=== PATIENT | female | born 1960 | race Caucasian/White ===

== ENCOUNTER 2017-09-22 16:54 | Observation (INO) ==
--- NOTE | 2017-09-22 17:09 | Emergency Department Note ---
Disposition Clinical Impression: Vasovagal syncope, Dehydration Disposition: Admitted As Inpatient Time of Disposition: 20:00 (jacinda proctor) Syncope HPI - General Chief Complaint: ED Syncope Stated Complaint: sycopal episode Time Seen by Provider: 09/22/17 17:05 Source: patient Mode of arrival: ambulatory Limitations: no limitations Nursing Notes Reviewed: Yes Vital Signs Reviewed: Yes - History of Present Illness HPI Narrative: Elderly female whose been having syncopal episodes since yesterday recently restarted back on her blood pressure medication has been having more episodes since this hit her shoulder hit her head patient states that she still feels lightheaded and dizzy like she can pass out when she gets up as result. 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: headache, lightheaded Context: during exertion Injuries Sustained Associated with Event: head, RUE Current Symptoms: lightheaded, weakness History: previous syncopal episode Treatments prior to arrival: none Associated trauma secondary to event: No - Related Data Home Medications Medication Instructions Recorded Confirmed Allopurinol [Zyloprim 300 MG] 300 mg PO DAILY 02/15/16 09/22/17 BuPROPion [Wellbutrin] 150 mg PO BID 02/15/16 09/22/17 Cholecalciferol (Vitamin D3) 400 unit PO DAILY 02/15/16 09/22/17 [Vitamin D3] Furosemide [Lasix] 80 mg PO DAILY 02/15/16 09/22/17 Gabapentin [Neurontin] 300 mg PO TID 02/15/16 09/22/17 Metoprolol [Lopressor] 25 mg PO DAILY 02/15/16 09/22/17 OxyCODONE ER (12 HR) [OxyCONTIN] 40 mg PO Q12HR 02/15/16 09/22/17 OxyCODONE/APAP 5/325 [Percocet 1 each PO Q6HR PRN 02/15/16 09/22/17 5/325 MG] Psyllium Husk [Daily Fiber] 0.52 gm PO DAILY 02/15/16 09/22/17 Rosuvastatin [Crestor] 20 mg PO HS 02/15/16 09/22/17 Linagliptin [Tradjenta] 5 mg PO DAILY 02/16/16 09/22/17 Naloxegol Oxalate [Movantik] 12.5 mg PO DAILY 10/19/16 09/22/17 Lisinopril [Zestril] 5 mg PO DAILY 09/22/17 09/22/17 Allergies Allergy/AdvReac Type Severity Reaction Status Date / Time Penicillins Allergy Difficulty Verified 09/22/17 16:56 Breathing All systems ED: reviewed and negative except as stated. Review of Systems: As Per HPI Constitutional: Denies: fever, chills, weakness Eyes: Denies: eye pain ENT ED: Denies: ear pain Cardiovascular: Reports: syncope. Denies: chest pain Respiratory: Denies: cough, dyspnea Gastrointestinal: Denies: abdominal pain Genitourinary: Denies: urgency, dysuria, frequency Musculoskeletal: Denies: back pain, neck pain Integumentary: Denies: rash, abrasion, lesions Neurological: Reports: weakness, vertigo. Denies: headache, confusion Psychiatric: Denies: anxiety, depression Endocrine: Reports: fatigue Hematological/Lymphatic: Denies: easy bleeding Allergic/Immunologic: Denies: facial swelling Past Medical History - Past Medical History Attestation: Yes The following information was validated with the patient. 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 history - Social History Smoking Status: Current every day smoker Smokeless Tobacco Status: No Alcohol use: Reports: none Drug use: Reports: none Physical Exam - General Limitations: no limitations General appearance: alert, in no apparent distress, obese - Head Head exam: atraumatic, normocephalic, normal inspection - Eye Eye exam: Present: normal appearance, PERRL, EOMI - ENT ENT exam: normal exam, normal oropharynx, mucous membranes moist, normal external ear exam - Neck Neck exam: Present: normal inspection, full ROM, trachea midline - Chest Chest inspection: Present: normal inspection, symmetric chest wall rise - Respiratory Respiratory exam: Present: normal lung sounds bilaterally - Cardiovascular Cardiovascular exam: Present: regular rate, normal rhythm, normal heart sounds - Abdominal Exam Abdominal exam: Present: soft, Non-Tender, normal bowel sounds - Extremities Exam Extremities exam: Present: normal inspection, full ROM, normal capillary refill. Absent: tenderness, pedal edema, joint swelling, calf tenderness - Expanded Lower Extremity Exam Neurovascular/Tendon exam: Present: normal capillary refill, normal fine/light touch Gait: observed and normal - Back Exam Back exam: Present: normal inspection, full ROM. Absent: muscle spasm - Neurological Exam Neurological exam: Present: alert, oriented X3, CN II-XII intact, normal gait - Psychiatric Psychiatric exam: Present: normal affect, normal mood - Skin Skin exam: Present: warm, dry, intact, normal color Course Course Narrative: Patient was seen and examined the patient received a total of 2 L fluid bolus blood pressure still holding at 80/46 heart rate still holding in the 60s patient and reviewing of her labs says that she has some renal impairment which may be the precipitating factor for this which appears to have occurred previously when I spoke to the patient about a which is why they have stopped her blood pressure medicines previously as result she is grade for observation transfer to [facility] services of Dr. Be Vital Signs Temperature 98.8 F 09/22/17 16:57 Pulse Rate 60 09/22/17 16:57 Respiratory Rate 18 09/22/17 16:57 Blood Pressure 78/46 09/22/17 16:57 O2 Sat by Pulse Oximetry 98 09/22/17 16:57 Temperature 98.1 F 09/23/17 06:49 Pulse Rate 76 09/23/17 06:49 Respiratory Rate 16 09/23/17 06:49 Blood Pressure 121/65 09/23/17 06:49 O2 Sat by Pulse Oximetry 93 09/23/17 06:49 Oxygen Delivery Oxygen Delivery Room Air Syncope - MDM Narrative Medical decision making narrative: Dehydration medication-induced metabolic - Differential Diagnosis Likely: syncope due to orthostatic hypotension - Medical Records Medical records reviewed: Yes I reviewed the patient's medical records. - Lab Data Lab results reviewed: Yes I reviewed the patient's lab results. Result diagrams: 09/23/17 04:52 09/23/17 04:52 Lab Results 09/22/17 09/22/17 09/22/17 Range/Units 17:18 17:18 17:18 WBC 13.2 H (4.3-11.1) K/mcL RBC 3.61 L (3.82-4.97) M/mcL Hgb 11.8 (11.5-15.4) g/dL Hct 36.4 (35.3-44.9) % MCV 100.8 H (83.0-100.0) fL MCH 32.7 (28.0-33.3) pg MCHC 32.4 (31.6-35.5) g/dL RDW 14.4 (11.5-14.5) % Plt Count 129 L (140-400) K/mcL MPV 9.9 (9.4-12.4) fL Immature Gran % 0.9 (0-4) % Seg Neutrophils % 77.5 % Lymphocytes % 11.6 % Monocytes % 7.6 % Eosinophils % 1.9 % Basophils % 0.5 % Neutrophils # 10.2 H (1.6-8.9) K/mcL Lymphocytes # 1.5 (0.6-4.6) K/mcL Monocytes # 1.0 (0.0-1.3) K/mcL Eosinophils # 0.3 (0.0-0.6) K/mcL Basophils # 0.1 (0.0-0.2) K/mcL PT 12.3 H (9.4-12.1) Seconds INR 1.1 APTT 25.6 L (26.0-36.0) Seconds Sodium 141 (136-145) mEq/L Potassium 4.9 H (3.5-4.5) mEq/L Chloride 104 (98-109) mEq/L Carbon Dioxide 26 (19-29) mEq/L BUN 44 H (7-20) mg/dL Creatinine 2.19 H (0.57-1.11) mg/dL Est GFR ( Amer) 28 L (> 60) Est GFR (Non-Af Amer) 23 L (> 60) BUN/Creatinine Ratio 20 (6-26) Glucose 161 H (70-99) mg/dL Calculated Osmolality 307 H (280-300) Calcium 8.7 (8.6-10.8) mg/dL Troponin I (0-0.03) ng/mL B-Natriuretic Peptide (0-100) pg/mL 09/22/17 09/22/17 Range/Units 17:18 17:18 WBC (4.3-11.1) K/mcL RBC (3.82-4.97) M/mcL Hgb (11.5-15.4) g/dL Hct (35.3-44.9) % MCV (83.0-100.0) fL MCH (28.0-33.3) pg MCHC (31.6-35.5) g/dL RDW (11.5-14.5) % Plt Count (140-400) K/mcL MPV (9.4-12.4) fL Immature Gran % (0-4) % Seg Neutrophils % % Lymphocytes % % Monocytes % % Eosinophils % % Basophils % % Neutrophils # (1.6-8.9) K/mcL Lymphocytes # (0.6-4.6) K/mcL Monocytes # (0.0-1.3) K/mcL Eosinophils # (0.0-0.6) K/mcL Basophils # (0.0-0.2) K/mcL PT (9.4-12.1) Seconds INR APTT (26.0-36.0) Seconds Sodium (136-145) mEq/L Potassium (3.5-4.5) mEq/L Chloride (98-109) mEq/L Carbon Dioxide (19-29) mEq/L BUN (7-20) mg/dL Creatinine (0.57-1.11) mg/dL Est GFR ( Amer) (> 60) Est GFR (Non-Af Amer) (> 60) BUN/Creatinine Ratio (6-26) Glucose (70-99) mg/dL Calculated Osmolality (280-300) Calcium (8.6-10.8) mg/dL Troponin I 0.01 (0-0.03) ng/mL B-Natriuretic Peptide 64 (0-100) pg/mL - Radiology Data Radiology results reviewed: Yes I reviewed the patient's radiology results. ITS Impressions Chest X-Ray 09/22/17 17:06 IMPRESSION: 1. No active pulmonary disease. D/ / Charlie Cunningham MD / Charlie Cunningham MD Interpreting Provider: Charlie Cunningham MD Head CT 09/22/17 17:06 IMPRESSION: No acute intracranial abnormality. D/ / Wei Baker MD / Wei Baker MD Interpreting Provider: Wei Baker MD - EKG Data EKG attestation: Yes I reviewed and interpreted this EKG. EKG results narrative: Sinus rhythm rate 60 OH 151 QRS 125 DT 432 axis -48 nonspecific changes Critical Care Time Critical Care Time: Yes Total Critical Care Time: 35 Attestation: Critical care performed: 35 minutes as the result of the patient having recurrent hypotension which was determined to be related possibly due to recent restarting of her medications which would account for Bradycardia Also Noted with the Patient That She Was Just Started Back on Blood Pressure Medication She Also Showing Signs of Renal Impairment Which May Be Acute When Compared to Previous Labs Scheduled Dr. Be Who Agrees Time is exclusive of separately billable procedures. Time includes: direct patient care, patient reassessment, coordination of patient care, interpretation of data (laboratory data, radiology data, and respiratory data), review of patient's medical records, medical consultation and documentation of patient care. Procedures included in critical care time: Procedures excluded from critical care time:
[2017-09-22] MEDS ORDERED: 0.9 % Sodium Chloride 1,000 ML IVC ONE (17:20)
[2017-09-22 17:30] LABS: Basophils # 0.1 K/mcL (0.0-0.2); Basophils % 0.5 %; Eosinophils # 0.3 K/mcL (0.0-0.6); Eosinophils % 1.9 %; Hematocrit 36.4 % (35.3-44.9); Hemoglobin 11.8 g/dL (11.5-15.4); Immature Granulocytes % 0.9 % (0-4); Lymphocytes # 1.5 K/mcL (0.6-4.6); Lymphocytes % 11.6 %; Mean Corpuscular HGB Conc 32.4 g/dL (31.6-35.5); Mean Corpuscular Hemoglobin 32.7 pg (28.0-33.3); Mean Corpuscular Volume 100.8 fL (83.0-100.0); Mean Platelet Volume 9.9 fL (9.4-12.4); Monocytes % 7.6 %; Platelet Count 129 K/mcL (140-400); Red Blood Count 3.61 M/mcL (3.82-4.97); Red Cell Distribution Width 14.4 % (11.5-14.5); Segmented Neutrophils % 77.5 %
[2017-09-22 17:40] LABS: Neutrophils # 10.2 K/mcL (1.6-8.9)
[2017-09-22 17:46] LABS: Calcium 8.7 mg/dL (8.6-10.8); Potassium 4.9 mEq/L (3.5-4.5)
[2017-09-22 17:55] LABS: INR 1.1; Prothrombin Time 12.3 Seconds (9.4-12.1)
[2017-09-22 17:58] LABS: Activated Partial Thrombo Time 25.6 Seconds (26.0-36.0)
[2017-09-22] MEDS ORDERED: D5% in Water 1,000 ML IVC PRN (21:12)
[2017-09-22] MEDS ORDERED: *HR* OxyCODONE/APAP 5/325 TABLET PO PRN (21:12)
[2017-09-22] MEDS ORDERED: Dextrose Gel 15 GM PO PRN ×2 (21:12)
[2017-09-22] MEDS ORDERED: Naloxone 0.4 MG/ML INJ IVP PRN (21:12)
[2017-09-22] MEDS ORDERED: *HR* Dextrose 50 % in Water (Syg) 50 ML SYRINGE IVP PRN (21:12)
[2017-09-22] MEDS ORDERED: 0.9 % Sodium Chloride 1,000 ML IVC SCH (21:12)
[2017-09-22] MEDS ORDERED: Ondansetron 4 MG/2 ML VIAL IVP PRN (21:12)
[2017-09-22] MEDS: Gabapentin 300 MG CAPSULE PO SCH (23:19)
[2017-09-22] MEDS: *HR* OxyCODONE ER (12 HR) 40 MG TABLET PO SCH (23:23)
[2017-09-23 05:23] LABS: Basophils # 0.1 K/mcL (0.0-0.2); Basophils % 0.6 %; Eosinophils # 0.3 K/mcL (0.0-0.6); Eosinophils % 3.1 %; Hematocrit 34.2 % (35.3-44.9); Hemoglobin 10.9 g/dL (11.5-15.4); Immature Granulocytes % 0.8 % (0-4); Lymphocytes # 1.9 K/mcL (0.6-4.6); Mean Corpuscular HGB Conc 31.9 g/dL (31.6-35.5); Mean Corpuscular Hemoglobin 32.7 pg (28.0-33.3); Mean Corpuscular Volume 102.7 fL (83.0-100.0); Mean Platelet Volume 9.9 fL (9.4-12.4); Monocytes # 0.6 K/mcL (0.0-1.3); Monocytes % 5.4 %; Neutrophils # 7.5 K/mcL (1.6-8.9); Platelet Count 115 K/mcL (140-400); Red Blood Count 3.33 M/mcL (3.82-4.97); Red Cell Distribution Width 14.5 % (11.5-14.5); Segmented Neutrophils % 72.1 %
[2017-09-23 05:28] LABS: Prothrombin Time 11.1 Seconds (9.4-12.1)
[2017-09-23 05:31] LABS: Activated Partial Thrombo Time 25.9 Seconds (26.0-36.0)
[2017-09-23 05:43] LABS: Calcium 8.3 mg/dL (8.6-10.8); Potassium 4.3 mEq/L (3.5-4.5)
[2017-09-23] MEDS ORDERED: *HR* OxyCODONE ER (12 HR) 40 MG TABLET PO SCH (06:00)
[2017-09-23] MEDS: *HR* OxyCODONE ER (12 HR) 40 MG TABLET PO SCH ×2 (06:20→20:18)
[2017-09-23] MEDS: Gabapentin 300 MG CAPSULE PO SCH ×3 (08:08→20:18)
[2017-09-23] MEDS: Bumetanide 1 MG/4 ML VIAL IVP SCH ×2 (08:08→16:56)
[2017-09-23] MEDS: Insulin LISPRO 300 UNITS/3 ML VIAL SQ SCH ×3 (08:09→16:55)
[2017-09-23] MEDS: Cholecalciferol (D-3) 1,000 UNIT TABLET PO SCH (08:09)
[2017-09-23] MEDS ORDERED: (Linagliptin [Tradjenta] 5 MG) PO SCH (09:00)
[2017-09-23] MEDS ORDERED: (Naloxegol Oxalate [Movantik] 12.5 MG) PO SCH (09:00)
[2017-09-23] MEDS ORDERED: PSYLLIUM HUSK 0.52 GM PO SCH (09:00)
--- NOTE | 2017-09-23 09:18 | Internal Med History&Physical ---
Date of Encounter: 09/23/17 Time of Encounter: 08:45 Assessment and Plan (1) Near syncope Current visit: Yes Status: Acute Suspect due to combination of medication and volume depletion. Her antihypertensive medications will be held and IV fluids have been ordered. Orthostatic vital signs will be checked in a.m. with repeat labs. (2) Anemia Current visit: Yes Status: Acute We will order anemia testing. Qualifiers: Anemia type: unspecified type Qualified Code(s): D64.9 - Anemia, unspecified (3) Gout Current visit: Yes Status: Acute We will check uric acid level in a.m. Qualifiers: Gout site: unspecified site Gout etiology: unspecified cause Chronicity: chronic Presence of tophus: without tophus Qualified Code(s): M1A.9XX0 - Chronic gout, unspecified, without tophus (tophi) (4) Hyperlipidemia Current visit: Yes Status: Acute We will check lipid profile in a.m. Qualifiers: Hyperlipidemia type: unspecified Qualified Code(s): E78.5 - Hyperlipidemia , unspecified (5) DM type 2 (diabetes mellitus, type 2) Current visit: Yes Status: Acute We will hold Tradjenta and do Accu-Cheks with SSI. Qualifiers: Diabetes mellitus complication status: with kidney complications Diabetes mellitus complication detail: with chronic kidney disease Chronic kidney disease stage: stage 3 (moderate) Qualified Code(s): E11.22 - Type 2 diabetes mellitus with diabetic chronic kidney disease; N18.3 - Chronic kidney disease, stage 3 (moderate); N18.3 - Chronic kidney disease, stage 3 (moderate) (6) CKD (chronic kidney disease) stage 3, GFR 30-59 ml/min Current visit: No Status: Chronic There is acute worsening on underlying chronic kidney disease. We will hold diuretics and give IV fluids. Internal Medicine - H&P: HPI Chief complaint: Near-syncope Admitted From: Home Plans for Post Hospital Care: Home History of present illness: Ms. Fung is a 56 year old female came to emergency room after having 2 episodes of near syncope over the previous 24 hours. She reports the first episode occurred the evening of September 21 while she was in the bathroom. She did not completely lose consciousness but fell and struck her head on a towel rack with no significant injury. On September 22 she reports she [place] and had another episode of near syncope. She did not completely lose consciousness but did fall to the floor. She was able to partially break her fall with her arms and there was no significant injury. She was brought to emergency room and evaluated and found to have hypotension with acute on chronic renal insufficiency. She was admitted to [facility] for ongoing care needs. 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 She reports she almost been involved in a car accident while en route to the office and she feels her blood pressure elevation at that time was primarily due to nearly having an accident. She reports her blood pressures at home are typically around 120/70. She has history of hypertension but no NC heart failure DVT or pulmonary embolus. She had an echocardiogram September 2014 which showed diastolic dysfunction but normal LVEF 60-65%. There was severe aortic stenosis. She underwent a tissue aortic valve replacement October 2014 as well as single- vessel CABG (SVG to RCA). She has known internal carotid stenosis 60-79% bilaterally that is being medically treated. Past Med Surg Social Fam HX - Past Medical History Medical history: diabetes, hyperlipidemia, hypertension, renal disease Psychiatric history: depression - Social History Smoking Status: Current every day smoker Smokeless Tobacco Status: No Alcohol use: none Drug use: none - Family History Mother Hx Family Cardiac Disorders: Yes Hx Family Endocrine Disorder: Yes (DM) Internal Medicine - H&P: Meds Allopurinol [Zyloprim 300 MG] 300 mg PO DAILY 02/15/16 [History] BuPROPion [Wellbutrin] 150 mg PO BID 02/15/16 [History] Cholecalciferol (Vitamin D3) [Vitamin D3] 400 unit PO DAILY 02/15/16 [History] Furosemide [Lasix] 80 mg PO DAILY 02/15/16 [History] Gabapentin [Neurontin] 300 mg PO TID 02/15/16 [History] Metoprolol [Lopressor] 25 mg PO DAILY 02/15/16 [History] OxyCODONE ER (12 HR) [OxyCONTIN] 40 mg PO Q12HR 02/15/16 [History] OxyCODONE/APAP 5/325 [Percocet 5/325 MG] 1 each PO Q6HR PRN 02/15/16 [History] Psyllium Husk [Daily Fiber] 0.52 gm PO DAILY 02/15/16 [History] Rosuvastatin [Crestor] 20 mg PO HS 02/15/16 [History] Linagliptin [Tradjenta] 5 mg PO DAILY 02/16/16 [History] Naloxegol Oxalate [Movantik] 12.5 mg PO DAILY 10/19/16 [History] Lisinopril [Zestril] 5 mg PO DAILY 09/22/17 [History] 3 Allergy/AdvReac Type Severity Reaction Status Date / Time Penicillins Allergy Difficulty Verified 09/22/17 16:56 Breathing All Systems PM: A 10-system review of systems was performed and is negative for pertinent findings except as documented above in the HPI. Review of systems: Review of systems from her September 2016 [facility] hospitalization were reviewed and revised as below Gen.: Her weight has decreased from 297 pounds at the April 2015 hospitalization to present weight of 243 pounds. This has been intentional. Cardiovascular: As per history of present illness Respiratory: She smoked 41 years up to 2 packs per day quitting June 2014. She thinks she had PFTs December 2013 which did not show significant lung disease. She does not wear home oxygen and has not been tested for sleep apnea. GI: She has had cholecystectomy and has GERD. She denies disorders of her liver or exocrine pancreas. She was hospitalized September 2016 at [facility] with acute colitis. : She has CKD stage III but denies other kidney or bladder disorders. She follows with Dr. Monroe in [place] Neurologic: She denies large distribution strokes or seizures. Endocrine: She was diagnosed with DM 2 approximately 1989. She has dyslipidemia but no known thyroid disease. Hematology/oncology: She has had anemia in the past with history of B12 deficiency. She denies internal malignancies or blood disorders. Psychiatric: She has history of depression but no significant anxiety or other mental health issues. [place] skeletal: She has DJD and gout but no known osteoporosis. She had traumatic injury to L4 and L5 vertebra in the past (work-related). - Constitutional Vitals: Temp Pulse Resp BP Pulse Ox 98.1 F 76 16 121/65 93 09/23/17 06:49 09/23/17 06:49 09/23/17 06:49 09/23/17 06:49 09/23/17 06:49 Exam: Gen.: She is a well-developed well-nourished female sitting in a chair at bedside who appears in no acute distress HEENT: Head is atraumatic and normocephalic. Eyes: EOMI. There is no scleral icterus. Mouth: Mucosa is moist. Neck: Supple and nontender. There is no thyromegaly or adenopathy noted. Heart: Regular without murmurs gallops or ectopics Lungs: No wheezes or crackles are heard. Abdomen: Soft and nontender. No masses or guarding are noted. Exam is limited because she is in the seated position. Extremities: There is no cyanosis edema or clubbing noted. Dorsalis pedis and posterior tibial pulses are trace palpable bilaterally. Her feet are warm to touch. Neurologic: Mental status: She is talkative and a good historian. Cranial nerves: Smile is symmetric. Forehead wrinkles bilaterally. Tongue protrudes midline. EOMI. Motor: There is no pronator drift. Cerebellar: Finger to nose is intact bilaterally. Skin: Warm and dry Internal Med - H&P Results - Labs CBC & Chem 7: 09/23/17 04:52 09/23/17 04:52 Labs: Short CBC 09/23/17 Range/Units 04:52 WBC 10.4 (4.3-11.1) K/mcL Hgb 10.9 L (11.5-15.4) g/dL Hct 34.2 L (35.3-44.9) % Plt Count 115 L (140-400) K/mcL Neutrophils # 7.5 (1.6-8.9) K/mcL BMP 09/23/17 04:52 Sodium 142 Potassium 4.3 Chloride 107 Carbon Dioxide 25 BUN 41 H Creatinine 1.75 H Glucose 161 H Calcium 8.3 L - VTE Reasons for not Prescribing Prophylaxis: Treatment not Indicated - Low risk for VTE
[2017-09-23 20:59] LABS: Hemoglobin A1C 6.6 %
[2017-09-23] MEDS ORDERED: Insulin LISPRO 300 UNITS/3 ML VIAL SQ SCH (21:00)
[2017-09-23 21:04] LABS: % Iron Saturation 14 % (15-50); Iron 34 mcg/dL (50-170); Transferrin 179 mg/dL (180-382)
[2017-09-23 21:26] LABS: Ferritin 144 ng/ml (5-204)
[2017-09-23 21:39] LABS: Folate 5.5 ng/mL (7.0-31.4)
[2017-09-24 06:08] LABS: Basophils # 0.1 K/mcL (0.0-0.2); Basophils % 0.8 %; Eosinophils # 0.3 K/mcL (0.0-0.6); Eosinophils % 4.5 %; Hematocrit 32.3 % (35.3-44.9); Hemoglobin 10.4 g/dL (11.5-15.4); Immature Granulocytes % 0.7 % (0-4); Lymphocytes # 1.4 K/mcL (0.6-4.6); Lymphocytes % 19.7 %; Mean Corpuscular HGB Conc 32.2 g/dL (31.6-35.5); Mean Corpuscular Volume 102.5 fL (83.0-100.0); Mean Platelet Volume 9.9 fL (9.4-12.4); Monocytes # 0.5 K/mcL (0.0-1.3); Monocytes % 7.3 %; Neutrophils # 4.9 K/mcL (1.6-8.9); Platelet Count 113 K/mcL (140-400); Red Blood Count 3.15 M/mcL (3.82-4.97); Red Cell Distribution Width 14.5 % (11.5-14.5)
[2017-09-24] MEDS: *HR* OxyCODONE ER (12 HR) 40 MG TABLET PO SCH (06:10)
[2017-09-24 06:23] LABS: Calcium 8.7 mg/dL (8.6-10.8); Magnesium 2.1 mg/dL (1.6-2.6); Potassium 4.8 mEq/L (3.5-4.5)
[2017-09-24 06:28] LABS: Chol/HDL Ratio 3.7 (0-4.9)
[2017-09-24 07:15] VITALS: BP 122/65
[2017-09-24] MEDS: Insulin LISPRO 300 UNITS/3 ML VIAL SQ SCH (08:24)
[2017-09-24] MEDS: Cholecalciferol (D-3) 1,000 UNIT TABLET PO SCH (08:25)
[2017-09-24] MEDS: Gabapentin 300 MG CAPSULE PO SCH (08:25)
--- NOTE | 2017-09-24 09:47 | Discharge Summary ---
Date of Encounter: 09/24/17 Time of Encounter: 09:30 - Discharge Diagnosis (1) Near syncope Priority: Primary Status: Acute (2) Anemia Priority: Secondary Status: Acute Qualifiers: Anemia type: unspecified type Qualified Code(s): D64.9 - Anemia, unspecified (3) Gout Priority: Secondary Status: Chronic Qualifiers: Gout site: unspecified site Gout etiology: unspecified cause Chronicity: chronic Presence of tophus: without tophus Qualified Code(s): M1A.9XX0 - Chronic gout, unspecified, without tophus (tophi) (4) Hyperlipidemia Priority: Secondary Status: Chronic Qualifiers: Hyperlipidemia type: unspecified Qualified Code(s): E78.5 - Hyperlipidemia , unspecified (5) DM type 2 (diabetes mellitus, type 2) Priority: Secondary Status: Chronic Qualifiers: Diabetes mellitus complication status: with kidney complications Diabetes mellitus complication detail: with chronic kidney disease Chronic kidney disease stage: stage 3 (moderate) Qualified Code(s): E11.22 - Type 2 diabetes mellitus with diabetic chronic kidney disease; N18.3 - Chronic kidney disease, stage 3 (moderate); N18.3 - Chronic kidney disease, stage 3 (moderate) (6) CKD (chronic kidney disease) stage 3, GFR 30-59 ml/min Priority: Secondary Status: Chronic - Discharge Medications Prescriptions: Ascorbic Acid [Vitamin C] 500 mg PO DAILY #30 tablet.er Ferrous Sulfate 325 mg PO DAILY #30 tablet Folic Acid 1 mg PO DAILY #30 tablet Home Medications: Allopurinol [Zyloprim 300 MG] 300 mg PO DAILY 02/15/16 [History] BuPROPion [Wellbutrin] 150 mg PO BID 02/15/16 [History] Cholecalciferol (Vitamin D3) [Vitamin D3] 400 unit PO DAILY 02/15/16 [History] Gabapentin [Neurontin] 300 mg PO TID 02/15/16 [History] OxyCODONE ER (12 HR) [OxyCONTIN] 40 mg PO Q12HR 02/15/16 [History] OxyCODONE/APAP 5/325 [Percocet 5/325 MG] 1 each PO Q6HR PRN 02/15/16 [History] Psyllium Husk [Daily Fiber] 0.52 gm PO DAILY 02/15/16 [History] Rosuvastatin [Crestor] 20 mg PO HS 02/15/16 [History] Linagliptin [Tradjenta] 5 mg PO DAILY 02/16/16 [History] Naloxegol Oxalate [Movantik] 12.5 mg PO DAILY 10/19/16 [History] Ascorbic Acid [Vitamin C] 500 mg PO DAILY #30 tablet.er 09/24/17 [Rx] Ferrous Sulfate 325 mg PO DAILY #30 tablet 09/24/17 [Rx] Folic Acid 1 mg PO DAILY #30 tablet 09/24/17 [Rx] Allergies/Adverse Reactions: 3 Allergy/AdvReac Type Severity Reaction Status Date / Time Penicillins Allergy Difficulty Verified 09/22/17 16:56 Breathing Date of admission: 09/22/17 19:32 Primary care physician: Wei Vega - Patient Status Disposition: Home, Self-Care Functional capacity at discharge: independent ambulation Overall status at discharge: patient is back to baseline - Discharge Instructions Follow Up With: Wei Vega DO [Primary Care Provider] - 1 week - Diet and Activity Activity: resume usual activities as tolerated Diet: advance to your usual diet Hospital course: Ms. Fung is a 56 year old female who came to emergency room after having 2 episodes of near syncope over the previous 24 hours. She reports the first episode occurred the evening of September 21 while she was in the bathroom. She did not completely lose consciousness but fell and struck her head on a towel rack with no significant injury. On September 22 she reports [place] and had another episode of near syncope. She did not completely lose consciousness but did fall to the floor. She was able to partially break her fall with her arms and there was no significant injury. She was brought to emergency room and evaluated and found to have hypotension with acute on chronic renal insufficiency. She was admitted to [facility] for ongoing care needs. Initial orders were written by the emergency room physician. I saw her on September 23 and performed a history and physical. Her Lasix, lisinopril, metoprolol were held because of borderline hypotension. She was given IV fluids. She had no further near syncopal or syncopal episodes and felt back to her baseline when I saw her September 24. Azotemia improved with BUN and creatinine 37 and 1.66 on the day of discharge with estimated GFR 32. She will remain off blood pressure medications at discharge. Anemia testing showed iron 34, transferrin saturation 14%, transferrin 179, ferritin 144, B12 238, folate 5.5. She will be prescribed ferrous sulfate with vitamin C and folic acid at discharge. On September 25 she felt stable for discharge home. She will follow with her PCP within one week. - Time Spent with Patient Total time spent providing and/or coordinating discharge services: - Constitutional Vitals: Temp Pulse Resp BP Pulse Ox 97.6 F 67 16 122/65 93 09/24/17 07:10 09/24/17 07:10 09/24/17 07:10 09/24/17 07:10 09/24/17 07:10 - VTE Reasons for not Prescribing Prophylaxis: Treatment not Indicated - Low risk for VTE
--- NOTE | 2017-09-28 09:44 | Electrocardiograph Report ---
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
== END 2017-09-24 11:18 | disposition home or self-care (01) ==
LOC: EMEROOPIK 16:54 → INPPIK 16:54
PROVIDERS: ADMIT Internal Medicine; ATTEND Internal Medicine

== ENCOUNTER 2019-11-29 16:50 | Observation (INO) ==
[2019-11-29 17:25] LABS: Basophils # 0.1 K/mcL (0.0-0.2); Basophils % 1.1 %; Eosinophils # 0.2 K/mcL (0.0-0.6); Eosinophils % 2.5 %; Hematocrit 42.2 % (35.3-44.9); Hemoglobin 14.3 g/dL (11.5-15.4); Immature Granulocytes % 0.8 % (0-4); Lymphocytes # 1.1 K/mcL (0.6-4.6); Lymphocytes % 16.8 %; Mean Corpuscular HGB Conc 33.9 g/dL (31.6-35.5); Mean Corpuscular Hemoglobin 33.4 pg (28.0-33.3); Mean Corpuscular Volume 98.6 fL (83.0-100.0); Mean Platelet Volume 9.7 fL (9.4-12.4); Monocytes # 0.5 K/mcL (0.0-1.3); Monocytes % 8.2 %; Neutrophils # 4.6 K/mcL (1.6-8.9); Platelet Count 152 K/mcL (140-400); Red Blood Count 4.28 M/mcL (3.82-4.97); Red Cell Distribution Width 13.3 % (11.5-14.5); Segmented Neutrophils % 70.6 %; White Blood Count 6.4 K/mcL (4.3-11.1)
[2019-11-29 17:33] LABS: INR 1.1; Prothrombin Time 12.4 Seconds (9.4-12.1)
[2019-11-29 17:35] LABS: Activated Partial Thrombo Time 28.3 Seconds (26.0-36.0)
[2019-11-29 17:43] LABS: Potassium 3.8 mEq/L (3.5-5.1)
[2019-11-29 17:46] LABS: Troponin I 0.04 ng/mL (< 0.04)
[2019-11-29] MEDS ORDERED: Aspirin 81 MG TAB.CHEW PO ONE (21:55)
[2019-11-29] MEDS ORDERED: 0.9 % Sodium Chloride 1,000 ML IVC SCH (21:55)
[2019-11-29] MEDS ORDERED: Naloxone 0.4 MG/ML INJ IVP PRN (21:55)
[2019-11-30] MEDS: BuPROPion SR (12 HR) 150 MG TABLET PO SCH ×2 (07:58→20:20)
[2019-11-30] MEDS: LINAGLIPTIN PO SCH (07:59)
[2019-11-30] MEDS: Gabapentin 400 MG CAPSULE PO SCH ×3 (07:59→20:20)
[2019-11-30] MEDS: (Naloxegol Oxalate [Movantik] 12.5 MG) PO SCH (07:59)
[2019-11-30 08:04] LABS: Hematocrit 42.7 % (35.3-44.9); Hemoglobin 14.2 g/dL (11.5-15.4); Mean Corpuscular HGB Conc 33.3 g/dL (31.6-35.5); Mean Corpuscular Hemoglobin 32.9 pg (28.0-33.3); Mean Corpuscular Volume 99.1 fL (83.0-100.0); Mean Platelet Volume 9.5 fL (9.4-12.4); Platelet Count 133 K/mcL (140-400); Red Blood Count 4.31 M/mcL (3.82-4.97); Red Cell Distribution Width 13.2 % (11.5-14.5); White Blood Count 5.7 K/mcL (4.3-11.1)
[2019-11-30 08:20] LABS: BUN/Creatinine Ratio 25 (6-26); Blood Urea Nitrogen 27 mg/dL (8-23); Calcium 8.8 mg/dL (8.6-10.3); Carbon Dioxide 28 mEq/L (23-29); Chloride 105 mEq/L (98-107); Glucose 215 mg/dL (70-105); Osmolality,Calculated 302 (280-300); Potassium 3.8 mEq/L (3.5-5.1); Sodium 140 mEq/L (136-145); eGFR For African Americans > 60 (> 60); eGFR For Non-African Americans 51 (> 60)
[2019-11-30] MEDS ORDERED: amLODIPine 5 MG TABLET PO SCH (09:00)
[2019-11-30] MEDS ORDERED: *HR* Dextrose 50 % in Water (Vial) 50 ML VIAL IVP PRN (09:25)
[2019-11-30] MEDS ORDERED: D5% in Water 1,000 ML IVC PRN (09:25)
[2019-11-30] MEDS ORDERED: Dextrose Gel 15 GM/37.5 ML TUBE PO PRN ×2 (09:25)
[2019-11-30] MEDS: *HR* Enoxaparin 40 MG/0.4 ML SYRINGE SQ SCH (10:18)
[2019-11-30] MEDS: Insulin LISPRO 300 UNITS/3 ML VIAL SQ SCH ×2 (11:37→16:34)
[2019-11-30] MEDS: Acetaminophen 325 MG TABLET PO PRN ×2 (14:03→20:20)
[2019-11-30] MEDS ORDERED: Insulin LISPRO 300 UNITS/3 ML VIAL SQ SCH (21:00)
[2019-11-30 22:18] LABS: Estimated Average Glucose 217 mg/dl
[2019-12-01 07:18] VITALS: BP 156/93
[2019-12-01] MEDS ORDERED: Insulin LISPRO 300 UNITS/3 ML VIAL SQ SCH ×2 (07:28)
[2019-12-01 08:01] LABS: Hematocrit 41.3 % (35.3-44.9); Hemoglobin 13.8 g/dL (11.5-15.4); Mean Corpuscular HGB Conc 33.4 g/dL (31.6-35.5); Mean Corpuscular Hemoglobin 33.1 pg (28.0-33.3); Mean Platelet Volume 10.4 fL (9.4-12.4); Platelet Count 140 K/mcL (140-400); Red Blood Count 4.17 M/mcL (3.82-4.97); Red Cell Distribution Width 13.2 % (11.5-14.5); White Blood Count 5.7 K/mcL (4.3-11.1)
[2019-12-01 08:16] LABS: BUN/Creatinine Ratio 24 (6-26); Blood Urea Nitrogen 22 mg/dL (8-23); Carbon Dioxide 29 mEq/L (23-29); Chloride 106 mEq/L (98-107); Glucose 235 mg/dL (70-105); Magnesium 1.7 mg/dL (1.6-2.6); Osmolality,Calculated 301 (280-300); Potassium 3.9 mEq/L (3.5-5.1); Sodium 140 mEq/L (136-145); eGFR For African Americans > 60 (> 60); eGFR For Non-African Americans > 60 (> 60)
[2019-12-01] MEDS: LINAGLIPTIN PO SCH (08:24)
[2019-12-01] MEDS: (Naloxegol Oxalate [Movantik] 12.5 MG) PO SCH (08:24)
[2019-12-01] MEDS: Gabapentin 400 MG CAPSULE PO SCH (08:35)
[2019-12-01] MEDS: BuPROPion SR (12 HR) 150 MG TABLET PO SCH (08:35)
[2019-12-01] MEDS: *HR* Enoxaparin 40 MG/0.4 ML SYRINGE SQ SCH (08:36)
[2019-12-01] MEDS ORDERED: Aspirin Enteric Coated 81 MG Tablet PO SCH (09:00)
[2019-12-01] MEDS ORDERED: amLODIPine 5 MG TABLET PO SCH (09:00)
[2019-12-01] MEDS ORDERED: Insulin DETEMIR 100 UNIT/ML X5UNITS SQ SCH (21:00)
== END 2019-12-01 12:55 | disposition home or self-care (01) ==
LOC: EMEROOPIK 16:50 → INPPIK 16:50
PROVIDERS: ADMIT Family Medicine; ATTEND Family Medicine